=== PATIENT | male | born 1990 | race Two or more races ===

== ENCOUNTER 2021-02-25 22:28 | Emergency (ER) | payer MEDICAID, OTHER ==
[~2021-02-25] VITALS: Ht 177.8 cm; Wt 97.5 kg
[2021-02-25 22:31] VITALS: BP 130/60
== END 2021-02-26 01:03 | disposition left against medical advice (07) ==
LOC: EDBD 22:28 → ER 22:28
DX: R51.9 Headache, unspecified (principal); Z53.21 Procedure and treatment not carried out due to patient leaving prior to being seen by health care provider

== ENCOUNTER 2021-02-26 17:18 | Emergency (ER) | payer MEDICAID ==
[~2021-02-26] VITALS: Ht 170.2 cm; Wt 113.4 kg
[2021-02-26 19:38] LABS: Hematocrit 48.2 % (41.0-53.0); Hemoglobin 16.8 g/dL (13.5-17.5); Mean Corpuscular Hemoglobin 32.7 pg (28.0-32.0); Mean Corpuscular Volume 93.5 fL (80.0-100.0); Red Blood Cells 5.15 10^6/uL (4.5-5.90); Red Cell Distribution Width 13.2 % (11.8-14.3); White Blood Cell 13.4 10^3/uL (4.4-10.8)
[2021-02-26 19:49] LABS: Albumin 3.9 g/dL (3.4-5.0); Basophils % (manual) 0 (0.0-2.0); Calcium 8.7 mg/dL (8.5-10.1); Eosinophils % (manual) 0 (0-7); Metamyelocytes % 0; Monocytes % (manual) 0 (0-12); Potassium 3.7 mmol/L (3.5-5.1); Promyelocytes % 0; Reactive Lymphocytes 0
[2021-02-26 19:50] LABS: Blast Cells 0
[2021-02-26 19:51] LABS: BUN/Creatinine Ratio 11.3
[2021-02-26 19:54] LABS: Bilirubin, Total 0.3 mg/dL (0.2-1.0); Total Protein 8.1 g/dL (6.4-8.2)
[2021-02-26 20:15] VITALS: BP 144/94
[2021-02-26] MEDS ORDERED: hydrOXYzine HCL 25 MG/ML VL IM ONE (20:45)
[2021-02-26 21:06] LABS: Band Neutrophils % (manual) 13; Lymphocytes % (manual) 22 (10.0-50.0); Myelocytes % 1
== END 2021-02-26 21:22 | disposition left against medical advice (07) ==
LOC: ER 17:18
DX: R06.02 Shortness of breath (principal); R07.89 Other chest pain; Z53.21 Procedure and treatment not carried out due to patient leaving prior to being seen by health care provider
CPT/HCPCS: 36415; 71046; 80053; 85007; 85027; 85049; 93005

== ENCOUNTER 2021-03-07 05:44 | Emergency (ER) | payer MEDICAID ==
[~2021-03-07] VITALS: Ht 172.7 cm; Wt 61.7 kg
[2021-03-07 05:57] VITALS: BP 138/82
[2021-03-07] MEDS ORDERED: LORazepam 0.5 MG TAB PO ONE (08:00)
== END 2021-03-07 08:56 | disposition home or self-care (01) ==
LOC: EDBD 05:44 → ER 05:44
DX: F41.9 Anxiety disorder, unspecified (principal); G47.00 Insomnia, unspecified
CPT/HCPCS: 93005

== ENCOUNTER 2022-04-27 15:35 | Emergency (ER) | payer MEDICAID ==
[~2022-04-27] VITALS: Ht 170.2 cm; Wt 105.7 kg
[~2022-04-27 15:35] MED LIST: ACYC-161 PO; IBUP800T27 PO
[2022-04-27] MEDS ORDERED: cefTRIAXone SOD 1,000 MG VL IM ONE (17:30)
[2022-04-27] MEDS ORDERED: methylPREDNISolone SOD SUCC 125 MG/2 ML VL IM ONE (17:30)
[2022-04-27] MEDS ORDERED: AZIT500T66 PO (17:42)
[2022-04-27] MEDS ORDERED: CLOT1CRE56 TOP (17:42)
[2022-04-27] MEDS ORDERED: LIDOCAINE 1% HCL (LOCAL ANESTH.) INJ 20ML MDV ONE (17:44)
[2022-04-27 17:52] VITALS: BP 134/81
== END 2022-04-27 17:57 | disposition home or self-care (01) ==
LOC: ER 15:35
DX: J03.90 Acute tonsillitis, unspecified (principal); B35.0 Tinea barbae and tinea capitis; Z88.2 Allergy status to sulfonamides
CPT/HCPCS: 96372; 99283; J0696; J2001

== ENCOUNTER 2023-04-06 07:18 | Inpatient (IN) | payer MEDICAID ==
[~2023-04-06] VITALS: Ht 170.2 cm; Wt 116.0 kg
[~2023-04-06 07:18] MED LIST changes: -ACYC-161 PO; +ACYC400T16 PO; +AZIT500T66 PO; +CLOT1CRE56 TOP; +IBUP-1456 PO; -IBUP800T27 PO
[2023-04-06] MEDS ORDERED: KETOROLAC TROMETH 30 MG/ML 1ML VIAL IV ONE (07:45)
[2023-04-06] MEDS ORDERED: SODIUM CHLORIDE 0.9% 1,000 ML IVB ONE (07:45)
[2023-04-06] MEDS ORDERED: ONDANSETRON HCL 4 MG/2 ML VIAL IV ONE (07:45)
[2023-04-06 08:09] LABS: Albumin 3.4 g/dL (3.4-5.0); Calcium 8.1 mg/dL (8.5-10.1); Magnesium 2.4 mg/dL (1.6-2.6); Potassium 4.2 mmol/L (3.5-5.1)
[2023-04-06 08:12] LABS: BUN/Creatinine Ratio 8.9 (10.0-20.0); Bilirubin, Total 0.8 mg/dL (0.2-1.0); Total Protein 7.7 g/dL (6.4-8.2)
[2023-04-06 08:35] LABS: Hematocrit 47.9 % (41.0-53.0); Hemoglobin 16.3 g/dL (13.5-17.5); Mean Corpuscular Hemoglobin 32.6 pg (28.0-32.0); Mean Corpuscular Hgb Conc. 34.1 g/dL (32.0-36.0); Mean Corpuscular Volume 95.7 fL (80.0-100.0); Red Cell Distribution Width 13.3 % (11.8-14.3); White Blood Cell 16.7 10^3/uL (4.4-10.8)
[2023-04-06 08:45] LABS: Urine Bacteria NONE SEEN /hpf (None Seen); Urine Blood Negative /uL (Negative); Urine Mucus FEW (None Seen); Urine Specific Gravity 1.021 (1.001-1.035); Urine WBC <1 /hpf (0 - 3)
[2023-04-06] MEDS ORDERED: metroNIDAZOLE 500MG/100ML 100 ML IV ONE (08:45)
[2023-04-06 08:47] LABS: Basophils % (manual) 0 (0.0-2.0); Blast Cells 0; Eosinophils % (manual) 0 (0-7); Metamyelocytes % 0; Promyelocytes % 0; Reactive Lymphocytes 0
[2023-04-06 08:52] VITALS: BP 114/73; PULSE 74; RESP 18; TEMP 97.9; O2SAT 99
[2023-04-06] MEDS ORDERED: MORPHINE SULFATE INJ 2 MG/ml SYRG IV PRN (11:45)
[2023-04-06] MEDS ORDERED: cefTRIAXone 1GM/50ML D5W 50 ML IV SCH (11:45)
[2023-04-06] MEDS ORDERED: SODIUM CHLORIDE 0.9% 1,000 ML IV ONE (11:45)
[2023-04-06 11:55] LABS: Band Neutrophils % (manual) 5; Lymphocytes % (manual) 19 (10.0-50.0); Monocytes % (manual) 8 (0-12); Myelocytes % 2
[2023-04-06] MEDS ORDERED: metroNIDAZOLE 500MG/100ML 100 ML IV SCH (12:30)
== END 2023-04-06 14:00 | disposition left against medical advice (07) | DRG 244 ==
LOC: ER 07:18 → TELE 11:35 → UNDODISIN 14:00
PROVIDERS: ADMIT Internal Medicine; ATTEND Student in an Organized Health Care Education/Training Program
DX: K57.32 Diverticulitis of large intestine without perforation or abscess without bleeding (principal); D72.829 Elevated white blood cell count, unspecified; I10 Essential (primary) hypertension; E66.01 Morbid (severe) obesity due to excess calories; F41.9 Anxiety disorder, unspecified; F12.90 Cannabis use, unspecified, uncomplicated; Z53.29 Procedure and treatment not carried out because of patient's decision for other reasons; Z87.440 Personal history of urinary (tract) infections; Z68.41 Body mass index [BMI] 40.0-44.9, adult; Z88.2 Allergy status to sulfonamides; Z71.3 Dietary counseling and surveillance
CPT/HCPCS: 36415; 74176; 80053; 81001; 83690; 83735; 85007; 85027; 96361; 96365; 96367; 96368; 96375; G0378; J0696; J1885; J2405; J3490